=== PATIENT | male | born 1950 | race Native Hawaiian/Other Pacific Islander ===

== ENCOUNTER 2017-07-08 10:54 | Outpatient (CLI) | payer MEDICARE ==
--- NOTE | 2017-07-08 14:02 | XRay Report ---
ROUTINE CHEST, TWO VIEWS: HISTORY: Encounter for other preprocedural exam. The trachea, heart, mediastinal contour, lung rolle and bony thorax are unremarkable. IMPRESSION: Unremarkable chest x-ray.
== END 2017-07-08 10:55 | disposition home or self-care (01) ==
LOC: XRAY 10:54
PROVIDERS: ATTEND Internal Medicine
DX: Z01.818 Encounter for other preprocedural examination (principal)
CPT/HCPCS: 71046

== ENCOUNTER 2017-11-29 08:52 | Outpatient (CLI) | payer MEDICARE ==
[2017-11-29 09:34] LABS: Basophils # (Auto) 0.1 K/mm3 (0.0-0.1); Basophils % (Auto) 1.3 % (0.0-1.8); Eosinophils # (Auto) 0.2 K/mm3 (0.0-0.4); Eosinophils % (Auto) 2.8 % (0.0-4.3); Hematocrit 39.6 % (35.5-45.6); Lymphocytes # (Auto) 2.2 K/mm3 (1.2-5.4); Lymphocytes % (Auto) 28.8 % (13.4-35.0); Mean Corpuscular HGB Conc 33 % (32-34); Mean Corpuscular Hemoglobin 32 pg (28-32); Mean Corpuscular Volume 96 fl (84-94); Monocytes # (Auto) 0.6 K/mm3 (0.0-0.8); Monocytes % (Auto) 7.7 % (0.0-7.3); Platelet Count 281 K/mm3 (140-440); Red Blood Count 4.13 M/mm3 (3.65-5.03)
[2017-11-29 09:37] LABS: Calcium 8.9 mg/dL (8.4-10.2)
== END 2017-11-29 08:53 | disposition home or self-care (01) ==
LOC: LAB 08:52
PROVIDERS: ATTEND Internal Medicine
DX: R50.9 Fever, unspecified (principal)
CPT/HCPCS: 36415; 80053; 84439; 85025

== ENCOUNTER 2018-08-03 08:13 | Outpatient (CLI) | payer MEDICARE ==
[2018-08-03 10:31] LABS: Chol/HDL Ratio 4.1 %
== END 2018-08-03 08:14 | disposition home or self-care (01) ==
LOC: LAB 08:13
PROVIDERS: ATTEND Internal Medicine
DX: E11.9 Type 2 diabetes mellitus without complications (principal); E03.9 Hypothyroidism, unspecified; E66.9 Obesity, unspecified
CPT/HCPCS: 36415; 80061; 83036; 84443

== ENCOUNTER 2019-04-17 09:08 | Outpatient (CLI) | payer MEDICARE ==
[2019-04-17 12:01] LABS: Chol/HDL Ratio 4.19 %
== END 2019-04-17 09:09 | disposition home or self-care (01) ==
LOC: LAB 09:08
PROVIDERS: ATTEND Internal Medicine
DX: E11.9 Type 2 diabetes mellitus without complications (principal); E78.5 Hyperlipidemia, unspecified; E03.9 Hypothyroidism, unspecified
CPT/HCPCS: 36415; 80061; 83036; 84443

== ENCOUNTER 2021-06-10 07:30 | Outpatient (CLI) | payer MEDICARE ==
--- NOTE | 2021-06-10 08:58 | Cat Scan Report ---
CT ABDOMEN AND PELVIS WITHOUT CONTRAST HISTORY: R31.0 HEMATURIA,GROSS COMPARISON: None. TECHNIQUE: Axial CT images were obtained through the abdomen and pelvis without IV contrast. Sagittal and coronal reformatted images. All CT scans at this location are performed using CT dose reduction for ALARA by means of automated exposure control. FINDINGS: CT ABDOMEN: Lung Bases: Clear. Liver: No significant abnormality. Biliary: The gallbladder appears contracted containing multiple tiny stones. The biliary ducts are un remarkable. Spleen: No significant abnormality. Unenlarged. Pancreas: No significant abnormality. Adrenals: No significant abnormality. Kidneys: Both kidneys are normal size, contour and position. 1.8 cm exophytic cyst near mid pole of t he right kidney is noted. There appear to be a few tiny punctate renal calyceal stones in both kidney s. The ureters are normal course and caliber. No ureteral stones or hydronephrosis. Lymphatics: No lymphadenopathy. Vasculature: No significant abnormality. Infrarenal IVC filter is noted Bowel/Peritoneum: Surgical changes are noted in the sigmoid colon, correlate with history. Otherwise the bowel loops are unremarkable. No evidence for obstruction or inflammation. Normal appendix. No ev idence for free air, ascites or fluid collection. CT PELVIS: : The prostate gland is normal size. Mild diffuse bladder wall thickening is suspected. This probab ly represents trabeculation of the bladder wall. Cystitis could be considered but is thought less lik rick. No discrete bladder mass or filling defect. Osseous Structures: Moderate thoracolumbar spondylosis. No suspicious bony lesion or fracture. Additional Findings: None IMPRESSION: Punctate bilateral renal calyceal stones are suspected. No ureteral stones or hydronephrosis. 1.8 cm right renal cyst. Mild diffuse bladder wall thickening is identified consistent with trabeculation or cystitis, correla te with the patient's history. Cholelithiasis. Surgical changes in the distal colon. Signer Name: Keon Diaz Jr, MD Signed: 06/10/2021 8:54 AM Workstation Name: [id number]
== END 2021-06-10 07:31 | disposition home or self-care (01) ==
LOC: CT 07:30
PROVIDERS: ATTEND Urology
DX: N20.0 Calculus of kidney (principal); N28.1 Cyst of kidney, acquired; R31.0 Gross hematuria; N13.30 Unspecified hydronephrosis; M47.815 Spondylosis without myelopathy or radiculopathy, thoracolumbar region
CPT/HCPCS: 74176

== ENCOUNTER 2021-09-03 08:31 | Outpatient (CLI) | payer MEDICARE ==
[2021-09-03 12:43] LABS: Calcium 9.8 mg/dL (8.4-10.2)
== END 2021-09-03 08:32 | disposition home or self-care (01) ==
LOC: LABHHL 08:31
PROVIDERS: ATTEND Internal Medicine
DX: E11.22 Type 2 diabetes mellitus with diabetic chronic kidney disease (principal); N18.9 Chronic kidney disease, unspecified
CPT/HCPCS: 36415; 80048; 83036

== ENCOUNTER 2021-09-17 09:33 | Outpatient (CLI) | payer MEDICARE ==
--- NOTE | 2021-09-17 10:47 | XRay Report ---
LEFT SHOULDER 3 VIEWS INDICATION / CLINICAL INFORMATION: M25.512 PAIN IN LEFT SHOULDER. COMPARISON: None available. FINDINGS: BONES / JOINT(S): There are moderate degenerative changes involving the acromioclavicular joint. Ther e are mild degenerative changes involving the anterior acromion and glenohumeral joint. There is no e vidence of acute fracture, subluxation or destructive lesion. SOFT TISSUES: No significant abnormality. ADDITIONAL FINDINGS: The visualized left lung is clear. IMPRESSION: Degenerative changes without acute abnormality. Signer Name: Jan Mast MD Signed: 09/17/2021 10:43 AM Workstation Name: [id number]
== END 2021-09-17 09:34 | disposition home or self-care (01) ==
LOC: XRAY 09:33
PROVIDERS: ATTEND Internal Medicine
DX: M19.012 Primary osteoarthritis, left shoulder (principal)